=== PATIENT | female | born 1960 | race Caucasian/White ===

== ENCOUNTER 2022-06-13 11:55 | Outpatient (CLI) | payer MEDICARE, MEDICAID, SELFPAY ==
--- NOTE | ~2022-06-13 | MM_ITS ---
EXAMINATION: MM screening samuel BI w abebe HISTORY: Screening mammogram TECHNIQUE: Craniocaudal and mediolateral oblique 3-D tomosynthesis images were obtained and synthetic 2-D images were generated. CAD analysis was submitted and interpreted. COMPARISON: 02/15/2017 bilateral screening mammogram BREAST PARENCHYMAL COMPOSITION: There are scattered areas of fibroglandular density. FINDINGS: There is no evidence of suspicious mass, calcification, or architectural distortion to sugg est malignancy in either breast. There has been no suspicious interval change. IMPRESSION: 1. No mammographic evidence of malignancy. 2. Recommend routine screening mammography in one year. BI-RADS Category 1: Negative Reviewed, dictated and finalized at location A. O OPERATOR
--- NOTE | ~2022-06-13 | CT_ITS ---
EXAMINATION: CT lung screening DATE: 06/13/2022 12:33 INDICATION: Smoking history. Tobacco dependence. TECHNIQUE: Computed tomography (CT) of the chest was performed without intravenous contrast. The dose -length product was 76.85 mGy-cm. Automated exposure control and iterative reconstruction technique w ere employed. COMPARISON: Chest x-ray dated 12/20/2013 FINDINGS: No significant pleural or pericardial effusion. Heart size is normal. There is atherosclero sis of the aorta and coronary arteries. No thoracic lymphadenopathy. The upper abdomen is unremarkabl e. There is emphysema. No endobronchial lesions. There is a 3 mm subsolid nodule in the left upper lo be. There is a 2 mm left upper lobe nodule. There is a 2 mm pleural-based right apical nodule. No foc al consolidation. No pneumothorax. IMPRESSION: 1. Lung-RADS category 2: Benign appearance or behavior. Continue annual screening with noncontrast lo w-dose chest CT in 12 months. Reviewed, dictated and finalized at location B. STANT PROFESSOR OF GEOGRAPHY IMPRESSION: 1. Lung-RADS category 2: Benign appearance or behavior. Continue annual screeni ng with noncontrast low-dose chest CT in 12 months.
== END 2022-06-13 11:56 | disposition home or self-care (01) ==
PROVIDERS: PCP Physician Assistant; Visit Provider Physician Assistant
DX: Z12.31 Encounter for screening mammogram for malignant neoplasm of breast (principal); Z12.2 Encounter for screening for malignant neoplasm of respiratory organs; F17.210 Nicotine dependence, cigarettes, uncomplicated
CPT/HCPCS: 71271; 77063; 77067

== ENCOUNTER 2024-09-21 13:39 | Emergency (ER) | payer MEDICARE, SELFPAY ==
--- NOTE | 2024-09-21 13:41 | ED_ITS ---
HPI - Skin/Abscess/Foreign Bdy General Chief complaint: Skin/Abscess/Foreign Body Stated complaint: rash Time Seen by Provider: 09/21/24 13:52 Source: patient and RN notes reviewed Mode of arrival: ambulatory Limitations: no limitations History of Present Illness HPI narrative: 64-year-old female presents to the [facility] with an itchy rash that has been going on for a month to the back of her neck at the hairline as well as lower legs. No treatment prior to arrival. Related Data Home Medications ?Medication ?Instructions ?Recorded ?Confirmed ?Last Taken ?Type No Home Medications 09/21/24 09/21/24 Unknown History Allergies Allergy/AdvReac Type Severity Reaction Status Date / Time Penicillins Allergy Severe Other Verified 09/21/24 14:01 poison macy extract Allergy Unknown Rash Unverified 09/21/24 14:01 Sulfa (Sulfonamide Allergy Unknown unknown Verified 09/21/24 14:01 Antibiotics) Review of Systems Review of Systems: All systems reviewed & are unremarkable except as noted in HPI and below Constitutional: Constitutional: Reports no additional constitutional complaints ENT: Reports system reviewed and no additional complaints, except as documented Cardiovascular: Cardiovascular: Reports no additional cardiovascular complaints, Denies chest pain and Denies dyspnea Respiratory: Respiratory: Reports no additional respiratory complaints, Denies chest congestion, Denies cough and Denies dyspnea Musculoskeletal: Musculoskeletal: Reports no additional musculoskeletal complaints Integumentary/Breasts: Skin/Breast: Reports as per HPI PMFSH Comments At the time of my signature, I reviewed and agree with the nursing past medical, surgical, social, and family history. There is no relevant family history pertinent to the patient complaint. Exam Const: General: cooperative, no acute distress, well developed, alert, ill appearing chronically and well nourished Nutritional Appearance: well nourished Orientation/consciousness: patient oriented x3 Limitations: no limitations HENMT: Head: normal to inspection Eyes: General: appearance normal, both eyes and all related structures Alignment and Position: alignment normal Neck: Neck: normal visual inspection, full ROM, no lymphadenopathy and no meningeal signs Chest: Chest palpation & inspection: normal inspection of the chest Resp: Effort & Inspection: normal respiratory effort and able to speak in complete sentences Cardio: Rate: regular rate Skin: General skin exam: normal color and no rashes or lesions noted Rashes: rashes noted Other: Lower legs, hairline posterior neck. No cellulitic changes. Neuro: General: patient oriented x3, gait normal, moves all extremities and no meningeal signs Cognition (Neuro): normal cognition Speech: normal speech Gait exam (Neuro): Normal gait present Extrem: General: normal to inspection, full ROM, capillary refill normal and normal gait Psych: Appearance: grossly normal and well kempt Mental Status: mental status grossly normal Speech and movement: Normal speech and movement present and Clear speech present Affect: normal affect Attitude: cooperative Course Course Level of Care: Express Care Visit Vital Signs Vital signs: Vital Signs Temperature 98.4 F 09/21/24 13:53 Pulse Rate 98 09/21/24 13:53 Respiratory Rate 16 09/21/24 13:53 Blood Pressure 163/94 H 09/21/24 13:53 Pulse Oximetry 97 09/21/24 13:53 Oxygen Delivery Room Air 09/21/24 13:53 Temperature 98.4 F 09/21/24 13:53 Pulse Rate 98 09/21/24 13:53 Respiratory Rate 16 09/21/24 13:53 Blood Pressure 163/94 H 09/21/24 13:53 Pulse Oximetry 97 09/21/24 13:53 Oxygen Delivery Room Air 09/21/24 13:53 Reviewed MDM - Skin/Abscess/Foreign Bdy MDM Narrative Medical decision making narrative: Patient sitting in exam room. Patient is nontoxic, vitals are stable except blood pressure elevated. Patient to follow-up with primary care provider for further evaluation. Patient reports 1 month history of an itchy rash to the neck line, bilateral lower legs. Probable insect bites most likely from flea bites. Patient appropriate for outpatient treatment with close follow-up Discharge instructions reviewed with patient, as well as provided in writing per nursing staff. The instructions also include specific and strict return/GO TO THE ER as well as f/u information. All questions have been answered, and the patient deny any further questions with discharge and discharge plan. Some parts of this dictation were generated by voice recognition software and may contain typographical and/or grammatical inaccuracies. Differential Diagnosis Differential diagnosis: Likely abscess of skin or subcutaneous tissue, viral exanthem, dermatophytosis, urticaria, cellulitis, insect bites, impetigo and contact dermatitis Critical Care Time Critical Care Time Critical Care Time: No Discharge Plan Discharge Clinical Impression: Insect bites Qualifiers: Encounter type: initial encounter Patient Disposition: Home Condition: Stable Instructions: Antibiotic Form, Insect Bite or Sting (ED) Additional Instructions: Please check your animals an your furniture for possible fleas. Applying hydrocortisone cream and taking Benadryl can help with the itching. Wash daily with warm soapy water to reduce the chances of infection. Keep your finger nails trimmed short, try not to scratch Follow-up with primary care provider Today your blood pressure was 163/94. Please follow-up within 2 weeks to have your blood pressure rechecked with your primary care provider. For worsening symptoms go directly to the emergency room Patient Language: Filipino Prescriptions: No Action No Home Medications Follow-up/Referrals: UNKNOWN,DOCTOR [Primary Care Provider] - Time of Disposition: 14:01
[2024-09-21 13:53] VITALS: BP 163/94; PULSE 98; RESP 16; TEMP 36.9; O2SAT 97
== END 2024-09-21 14:10 | disposition home or self-care (01) ==
PROVIDERS: Emergency Provider Nurse Practitioner
DX: S80.862A Insect bite (nonvenomous), left lower leg, initial encounter (principal); S80.861A Insect bite (nonvenomous), right lower leg, initial encounter; S10.96XA Insect bite of unspecified part of neck, initial encounter; W57.XXXA Bitten or stung by nonvenomous insect and other nonvenomous arthropods, initial encounter; Z90.711 Acquired absence of uterus with remaining cervical stump
CPT/HCPCS: 99202; G0463